=== PATIENT | female | born 1990 | race Two or more races ===

== ENCOUNTER 2018-05-14 11:33 | Observation (INO) | payer BC, OTHER ==
[2018-05-14 11:47] VITALS: BMI 31.0
[2018-05-14] MEDS ORDERED: GLUCAGON 1 MG KIT IVPUSH ONE (12:04)
[2018-05-14] MEDS ORDERED: SODIUM CHLORIDE 1,000 ML IV STA ×2 (12:04→15:00)
[2018-05-14] MEDS ORDERED: ONDANSETRON 4 MG/2 ML VIAL IVPUSH ONE (12:04)
--- NOTE | 2018-05-14 12:10 | PDOC ---
*Physical Exam - Vital Signs Last Vital Signs Temp Pulse Resp BP Pulse Ox 98.5 F 69 18 122/90 100 05/14/18 11:44 05/14/18 11:44 05/14/18 11:44 05/14/18 11:44 05/14/18 11:44 Medical Decision Making - Medical Decision Making 05/14/18 12:09 Vital Signs Temp Pulse Resp BP Pulse Ox 98.5 F 69 18 122/90 100 05/14/18 11:44 05/14/18 11:44 05/14/18 11:44 05/14/18 11:44 05/14/18 11:44 I agree with SANDRA Harrison's plan. Will trial medications i.e. zofran, glucagon for food impaction. If medication management fails, consult GI for endoscopy and admit. *DC/Admit/Observation/Transfer - Referrals Referrals: Nataliia Mar [Primary Care Provider] - - Patient Instructions - Post Discharge Activity
[2018-05-14] MEDS ORDERED: ONDANSETRON 4 MG/2 ML VIAL ONE (12:11)
[2018-05-14] MEDS ORDERED: GlUCAGON HUMAN RECOMBINANT 1 MG/VIAL ONE (12:11)
[2018-05-14] MEDS ORDERED: GLUCAGON 1 MG KIT ONE (12:16)
--- NOTE | 2018-05-14 12:26 | PDOC ---
History of Present Illness - General Chief Complaint: Nausea/Vomiting Stated Complaint: VOMITTING Time Seen by Provider: 05/14/18 11:52 History Source: Patient - History of Present Illness Timing/Duration: other Associated Symptoms: denies: chest pain Past History - Past Medical History Allergies/Adverse Reactions: Allergies Allergy/AdvReac Type Severity Reaction Status Date / Time No Known Allergies Allergy Verified 05/14/18 11:47 Home Medications: Ambulatory Orders Liraglutide [Saxenda] 3 mg SQ DAILY 04/16/16 COPD: No - Suicide/Smoking/Psychosocial Hx Smoking History: Never smoked Have you smoked in the past 12 months: No Substance Use Type: None Review of Systems - Review of Systems Constitutional: No: Chills, Fever Respiratory: No: Shortness of Breath, Stridor, Wheezing ABD/GI: No: Abdominal cramping *Physical Exam - Vital Signs Last Vital Signs Temp Pulse Resp BP Pulse Ox 98.5 F 69 18 122/90 100 05/14/18 11:44 05/14/18 11:44 05/14/18 11:44 05/14/18 11:44 05/14/18 11:44 - Physical Exam General Appearance: Yes: Appropriately Dressed. No: Apparent Distress HEENT: positive: Normal Voice Neck: positive: Supple. negative: Stridor Respiratory/Chest: positive: Lungs Clear, Normal Breath Sounds. negative: Respiratory Distress Cardiovascular: positive: Regular Rate, S1, S2 Gastrointestinal/Abdominal: positive: Soft. negative: Tender Integumentary: positive: Dry, Warm Neurologic: positive: Fully Oriented, Alert, Normal Mood/Affect ED Treatment Course - LABORATORY CBC & Chemistry Diagram: 05/14/18 12:39 05/14/18 12:27 - RADIOLOGY Radiology Studies Ordered: Category Date Time Status ABDOMEN-KUB FLAT PLATE [RAD] Stat Radiology 05/14/18 12:09 Ordered CHEST PA & LAT [RAD] Stat Radiology 05/14/18 12:06 Ordered NECK SOFT TISSUE [RAD] Stat Radiology 05/14/18 12:06 Ordered Medical Decision Making - Medical Decision Making 05/14/18 12:26 27-year-old female, no significant history, here with dysphagia. Patient states 2 days ago, she choked on a grape and had to have her father performed the Heimlich maneuver. States since then, she is unable to keep down any solids or liquids and ends up regurgitating. No difficulty breathing or stridor. Was seen in an urgent care yesterday and had an abdominal x-ray done which was read as normal per patient, here for evaluation as symptoms persist See exam Concern for esophageal obstruction 2/2 grape 3 days ago No resp sxs and stable in ED -XR -IVF/zofran/glucagon for esophageal dilation as d/w Dr Harris -pre-op labs -GI c/s for endoscopy 05/14/18 14:59 On reassessment, patient took a sip of water and reports discomfort but did not regurgitate. X-rays negative. Case discussed with Dr. Patiño of GI, who states he will see and school patient in a.m. 05/14/18 15:[address] Patiño of GI, who states he will scope patient in the a.m. Case discussed with admitting team and patient admitted to obs *DC/Admit/Observation/Transfer Diagnosis at time of Disposition: Food impaction of esophagus Qualifiers: Encounter type: initial encounter Qualified Code(s): T18.128A - Food in esophagus causing other injury, initial encounter - Discharge Dispostion Condition at time of disposition: Fair Decision to Admit order: Yes - Referrals Referrals: Nataliia Mar [Primary Care Provider] - - Patient Instructions - Post Discharge Activity
[2018-05-14 12:43] LABS: BASO % 0.8 % (0-2.0); EOS % 7.3 % (0-4.5); HEMATOCRIT 43.1 % (32.4-45.2); LYMPH % 24.7 % (8-40); MCH 27.9 pg (25.7-33.7); MCHC 32.5 g/dl (32.0-36.0); MEAN PLT VOLUME 8.7 fl (7.5-11.1); MONO % 5.1 % (3.8-10.2); NEUT % 62.1 % (42.8-82.8); PLATELET COUNT 218 K/MM3 (134-434); RBC 5.02 M/mm3 (3.60-5.2); RDW 14.1 % (11.6-15.6); WHITE BLOOD COUNT 9.2 K/mm3 (4.0-10.0)
[2018-05-14 12:45] LABS: URINE APPEARANCE CLEAR; URINE BILIRUBIN NEGATIVE (<2.0 mg/dL); URINE COLOR DKYELLOW; URINE GLUCOSE (UA) NEGATIVE (NEGATIVE); URINE KETONE TRACE (NEGATIVE); URINE LEUK ESTERASE NEGATIVE (NEGATIVE); URINE NITRITE NEGATIVE (NEGATIVE)
[2018-05-14 12:52] LABS: URINE PROTEIN 1+ (NEGATIVE)
[2018-05-14 12:56] LABS: EPI CELLS RARE /HPF (FEW); INR 1.03 (0.83-1.09); PROTHROMBIN TIME (PATIENT) 12.2 SEC (9.7-13.0); URINE BACTERIA RARE /hpf (NONE SEEN); URINE MUCUS RARE
[2018-05-14 13:06] LABS: ALBUMIN 3.8 g/dl (3.4-5.0); ALK PHOS 46 U/L (45-117); ANION GAP 9 MMOL/L (8-16); BILIRUBIN,TOTAL 0.5 mg/dL (0.2-1); BLOOD UREA NITROGEN 16 mg/dL (7-18); CALCIUM 8.8 mg/dL (8.5-10.1); CHLORIDE 106 mmol/L (98-107); CO2 24 mmol/L (21-32); CREATININE 1.3 mg/dL (0.55-1.3); GLUCOSE,RANDOM 76 mg/dL (74-106); SGOT/AST 17 U/L (15-37); SGPT/ALT 21 U/L (13-61); SODIUM 139 mmol/L (136-145); TOT PROT 7.8 g/dl (6.4-8.2)
--- NOTE | 2018-05-14 16:23 | HP ---
CHIEF COMPLAINT: Dysphagia PCP: HISTORY OF PRESENT ILLNESS: 27 year-old female with a PMH significant for migraines, presented to the ED with a complaint of difficulty swallowing. Two days ago patient choked on a grape and her father performed the Heimlich maneuver. She did not see any food come out, but since then has been unable to keep down liquids or solids. In the ER patient was able to keep down sips of water but reported discomfort with swallowing. Patient denies any type of respiratory distress. Recent Travel: No PAST MEDICAL HISTORY: Migraines PAST SURGICAL HISTORY: Right axillary sweat gland removal 2010 Social History: Smoking: occasional Alcohol: occasional Drugs: no Family History: Allergies No Known Allergies Allergy (Verified 05/14/18 11:47) HOME MEDICATIONS: Home Medications Medication Instructions Recorded Liraglutide [Saxenda] 3 mg SQ DAILY 04/16/16 REVIEW OF SYSTEMS CONSTITUTIONAL: Absent: fever, chills, diaphoresis, generalized weakness, malaise, loss of appetite, weight change HEENT: Absent: rhinorrhea, nasal congestion, throat pain, throat swelling, difficulty swallowing, mouth swelling, ear pain, eye pain, visual changes CARDIOVASCULAR: Absent: chest pain, syncope, palpitations, irregular heart rate, lightheadedness , peripheral edema RESPIRATORY: Absent: cough, shortness of breath, dyspnea with exertion, orthopnea, wheezing, stridor, hemoptysis GASTROINTESTINAL: +dysphagia Absent: abdominal pain, abdominal distension, nausea, vomiting, diarrhea, constipation, melena, hematochezia GENITOURINARY: Absent: dysuria, frequency, urgency, hesitancy, hematuria, flank pain, genital pain MUSCULOSKELETAL: Absent: myalgia, arthralgia, joint swelling, back pain, neck pain SKIN: Absent: rash, itching, pallor HEMATOLOGIC/IMMUNOLOGIC: Absent: easy bleeding, easy bruising, lymphadenopathy, frequent infections ENDOCRINE: Absent: unexplained weight gain, unexplained weight loss, heat intolerance, cold intolerance NEUROLOGIC: Absent: headache, focal weakness or paresthesias, dizziness, unsteady gait, seizure, mental status changes, bladder or bowel incontinence PSYCHIATRIC: Absent: anxiety, depression, suicidal or homicidal ideation, hallucinations. PHYSICAL EXAMINATION Vital Signs - 24 hr 05/14/18 11:44 Temperature 98.5 F Pulse Rate 69 Respiratory 18 Rate Blood Pressure 122/90 O2 Sat by Pulse 100 Oximetry (%) GENERAL: Awake, alert, and fully oriented, in no acute distress. HEAD: Normal with no signs of trauma. EYES: Pupils equal, round and reactive to light, extraocular movements intact, sclera anicteric, conjunctiva clear. No lid lag. EARS, NOSE, THROAT: Ears normal, nares patent, oropharynx clear without exudates. Moist mucous membranes. NECK: Normal range of motion, supple without lymphadenopathy, JVD, or masses. LUNGS: Breath sounds equal, clear to auscultation bilaterally. No wheezes, and no crackles. No accessory muscle use. HEART: Regular rate and rhythm, normal S1 and S2 without murmur, rub or gallop. ABDOMEN: Soft, nontender, not distended, normoactive bowel sounds, no guarding, no rebound, no masses. No hepatomegaly or splenomegaly. MUSCULOSKELETAL: Normal range of motion at all joints. No bony deformities or tenderness. No CVA tenderness. UPPER EXTREMITIES: 2+ pulses, warm, well-perfused. No cyanosis. No clubbing. No peripheral edema. LOWER EXTREMITIES: 2+ pulses, warm, well-perfused. No calf tenderness. No peripheral edema. NEUROLOGICAL: Cranial nerves II-XII intact. Normal speech. Laboratory Results - last 24 hr 05/14/18 05/14/18 05/14/18 12:27 12:39 12:39 WBC RBC Hgb Hct MCV MCH MCHC RDW Plt Count MPV Absolute Neuts (auto) Neutrophils % Lymphocytes % Monocytes % Eosinophils % Basophils % Nucleated RBC % PT with INR INR Sodium 139 Potassium 4.0 Chloride 106 Carbon Dioxide 24 Anion Gap 9 BUN 16 Creatinine 1.3 Creat Clearance w eGFR 49.91 Random Glucose 76 Calcium 8.8 Total Bilirubin 0.5 AST 17 ALT 21 Alkaline Phosphatase 46 Total Protein 7.8 Albumin 3.8 Serum , Qual Negative Urine Color Dkyellow Urine Appearance Clear Urine pH 6.0 Ur Specific [place] 1.029 Urine Protein 1+ H Urine Glucose (UA) Negative Urine Ketones Trace H Urine Blood Negative Urine Nitrite Negative Urine Bilirubin Negative Urine Urobilinogen 2.0 H Ur Leukocyte Esterase Negative Urine WBC (Auto) 9 Urine RBC (Auto) None Ur Epithelial Cells Rare Urine Bacteria Rare Urine Mucus Rare Blood Type Antibody Screen 05/14/18 05/14/18 05/14/18 12:39 12:39 12:39 WBC 9.2 RBC 5.02 Hgb 14.0 Hct 43.1 MCV 86.0 MCH 27.9 MCHC 32.5 RDW 14.1 Plt Count 218 MPV 8.7 Absolute Neuts (auto) 5.7 Neutrophils % 62.1 Lymphocytes % 24.7 Monocytes % 5.1 Eosinophils % 7.3 H Basophils % 0.8 Nucleated RBC % 0 PT with INR 12.20 INR 1.03 Sodium Potassium Chloride Carbon Dioxide Anion Gap BUN Creatinine Creat Clearance w eGFR Random Glucose Calcium Total Bilirubin AST ALT Alkaline Phosphatase Total Protein Albumin Serum , Qual Urine Color Urine Appearance Urine pH Ur Specific [place] Urine Protein Urine Glucose (UA) Urine Ketones Urine Blood Urine Nitrite Urine Bilirubin Urine Urobilinogen Ur Leukocyte Esterase Urine WBC (Auto) Urine RBC (Auto) Ur Epithelial Cells Urine Bacteria Urine Mucus Blood Type A POSITIVE Antibody Screen Negative ASSESSMENT/PLAN: 27 year-old female with no significant PMH admitted for food impaction. Food impaction of esohagus --seen and evaluated by GI, plan is to scope tomorrow --NPO --IV fluids Visit type - Emergency Visit Emergency Visit: Yes ED Registration Date: 05/14/18 Care time: The patient presented to the Emergency Department on the above date and was hospitalized for further evaluation of their emergent condition. - New Patient This patient is new to me today: Yes Date on this admission: 05/15/18 - Critical Care Critical Care patient: No Hospitalist Screening - Colonoscopy Questionnaire Colonoscopy Questionnaire: Colonoscopy Questionnaire - Patient: 50 - 75 years old and never had a screening colonoscopy: No History of colon or rectal polyps, or CA: No History of IBD, Crohn's disease or UC: No History of abdominal radiation therapy as a child: No - Relative: 1 with colon or rectal CA, or polyps at age 60 or younger: Unknown Colon or rectal CA diagnosed at age 45 or younger: Unknown Multiple relatives with colon or rectal CA: Unknown - Outcome: Screening Result: Negative Screen
[2018-05-14] MEDS ORDERED: SUCRALFATE 1 GM/10 ML UNIT DOSE CUPS PO SCH (16:45)
[2018-05-14] MEDS: D5-1/2NS+20 MEQ KCL - 20 MEQ/1,000 ML INFUS.BAG IV SCH (17:10)
[2018-05-15] MEDS: D5-1/2NS+20 MEQ KCL - 20 MEQ/1,000 ML INFUS.BAG IV SCH (02:35)
--- NOTE | 2018-05-15 09:05 | CON.GI ---
Consult Consult Specialty:: GI Referred by:: Hospitalist service Reason for Consultation:: dysphagia - History of Present Illness Chief Complaint: dysphagia History of Present Illness: 27F admitted for evaluation of food intolerance after eating a grape. she states that she was eating grapes tuesday eveing, pur one in her mouth that remained unchewed and she felt as though it lodged in her throat. She stated feeling as though she could not breathe and her parent performed the heimlich. While she was able to breathe afterwards she was concerned because she did not see it come out. She then began having episodes of vomiting up of mucous. she came to the ER, exaplains that she tried swallowing water and that a few minutes later she began to vomit up. She described pain when swallowing now. She has not vomited this morning. She denies a history of dysphagia. 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 There is nop family history of colorectal cancer or other GI malignancy. She was able to sip water this morning but states that there was pain when she swallowed. 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 No children Review of Systems - Review of Systems Constitutional: denies: Diaphoresis, Fever Cardiovascular: denies: Chest Pain Respiratory: reports: Cough. denies: SOB Gastrointestinal: reports: Abdominal Pain (mild epigastric TTP) Physical Exam-GI Vital Signs: Vital Signs Temperature 98.2 F 05/15/18 06:00 Pulse Rate 58 L 05/15/18 06:00 Respiratory Rate 20 05/15/18 06:00 Blood Pressure 99/50 L 05/15/18 06:00 O2 Sat by Pulse Oximetry (%) 100 05/14/18 22:04 Constitutional: Yes: Calm Eyes: No: Sclera Icterus Cardiovascular: Yes: Regular Rate and Rhythm. No: Murmur Respiratory: Yes: CTA Bilaterally Gastrointestinal Inspection: Yes: Other (+ RLQ tattoo). No: Distention ...Auscultate: Yes: Normoactive Bowel Sounds ...Palpate: Yes: Soft. No: Tenderness ...Percussion: No: Tympanitic Edema: No (No LE edema) Neurological: Yes: Alert, Oriented Labs: CBC, BMP 05/14/18 12:39 05/14/18 12:27 INR, PTT INR 1.03 (0.83-1.09) 05/14/18 12:39 Hepatic Panel Total Bilirubin 0.5 mg/dL (0.2-1) 05/14/18 12:27 AST 17 U/L (15-37) 05/14/18 12:27 ALT 21 U/L (13-61) 05/14/18 12:27 Alkaline Phosphatase 46 U/L (45-117) 05/14/18 12:27 Albumin 3.8 g/dl (3.4-5.0) 05/14/18 12:27 Imaging - Results X-ray: Other Problem List - Problems (1) Food impaction of esophagus Assessment/Plan: Able to swallow liquids this morning but still with pain. I question if what she is experiencing now is sensation from having a transient impaction from the grape. It would be odd for a grape to be lodged in the esophagus for so long as it would likely break down. We did discuss upper endosscopy for further evaluation and potential extraction of foreign body. We dioscussed potential risks of the procedure like but not limited to bleeding, perforation requiring surgery to repair, infection, sedation medication effects all of which could be potentially life threatening. I also explained the possible need for endotracheal intubation. She has agreed to the procedure. For now: NPO IV Hydration Code(s): T18.128A - FOOD IN ESOPHAGUS CAUSING OTHER INJURY, INITIAL ENCOUNTER Qualifiers: Encounter type: initial encounter Qualified Code(s): T18.128A - Food in esophagus causing other injury, initial encounter
--- NOTE | 2018-05-15 13:38 | PN ---
Progress Note (short form) - Note Progress Note: EGD report placed in physical chart and to be scanned into [employer] Problem List - Problems (1) Food impaction of esophagus Code(s): T18.128A - FOOD IN ESOPHAGUS CAUSING OTHER INJURY, INITIAL ENCOUNTER Qualifiers: Encounter type: initial encounter Qualified Code(s): T18.128A - Food in esophagus causing other injury, initial encounter
--- NOTE | 2018-05-15 16:25 | DS ---
Physical Exam: SUBJECTIVE: Patient seen and examined OBJECTIVE: Vital Signs Period Temp Pulse Resp BP Sys/Del Cid Pulse Ox Last 24 Hr 97.6 F-98.4 F 58-76 14-20 99-120/50-86 100-100 PHYSICAL EXAM GENERAL: The patient is awake, alert, and fully oriented, in no acute distress. HEAD: Normal with no signs of trauma. EYES: PERRL, extraocular movements intact, sclera anicteric, conjunctiva clear. ENT: Ears normal, nares patent, oropharynx clear without exudates, moist mucous membranes. NECK: Trachea midline, full range of motion, supple. LUNGS: Breath sounds equal, clear to auscultation bilaterally, no wheezes, no crackles, no accessory muscle use. HEART: Regular rate and rhythm, S1, S2 without murmur, rub or gallop. ABDOMEN: Soft, nontender, nondistended, normoactive bowel sounds, no guarding, no rebound, no hepatosplenomegaly, no masses. EXTREMITIES: 2+ pulses, warm, well-perfused, no edema. NEUROLOGICAL: Cranial nerves II through XII grossly intact. Normal speech, gait not observed. PSYCH: Normal mood, normal affect. SKIN: Warm, dry, normal turgor, no rashes or lesions noted. LABS Laboratory Results - last 24 hr 05/14/18 17:05 Blood Type A POSITIVE HOSPITAL COURSE: Date of Admission:05/14/18 Date of Discharge: 05/15/18 Discharge Summary Reason For Visit: FOOD IMPACTION OF ESOPHAGUS Current Active Problems Food impaction of esophagus (Acute) Condition: Improved - Instructions Diet, Activity, Other Instructions: Advance your diet slowly. Eat only those foods that you can swallow easily. Drink plenty of fluids. Please call Dr. Fransisco Keane's office to schedule your outpatient followup. Return to the emergency department for any new or worsening symtpoms. Referrals: Nataliia Mar [Primary Care Provider] - Peter Keane DO [Staff Physician] - Disposition: HOME - Home Medications Comprehensive Discharge Medication List: Ambulatory Orders Norgestimate-Ethinyl Estradiol [Uge-Bs-Gvmupq Tablet] 1 tab PO DAILY 05/14/18 Topiramate [Topamax] 100 mg PO DAILY 05/14/18
[2018-05-15 17:12] VITALS: BP 114/65; PULSE 68; TEMP 98.5
--- NOTE | 2018-05-16 18:51 | PATH ---
Surgical Pathology Report Patient Name: HELEN JOLLY Med. Rec. #: [id number] /Age/Gender: 1990 (Age: 27) / F Account: [id number] Location: [facility] MED/SURG Taken: 05/15/2018 Received: 05/15/2018 Reported: 05/16/2018 Physicians: Juan Thrasher ACNP Specimen(s) Received A: BX BODY B: BX GE JUNCTION Clinical History Foreign body removal, food impaction of esophagus Final Diagnosis A. BODY, BIOPSY: GASTRIC MUCOSA WITH NO DIAGNOSTIC ABNORMALITIES. IMMUNOSTAIN IS NEGATIVE FOR H. PYLORI ORGANISMS. NEGATIVE FOR INTESTINAL METAPLASIA. B. GE JUNCTION, BIOPSY: GASTROESOPHAGEAL JUNCTIONAL MUCOSA SHOWING BASAL CELL HYPERPLASIA, ELONGATION OF LAMINA PROPRIA PAPILLAE, AND FOCAL EOSINOPHILIC INFILTRATE (FOCAL EOSINOPHILIC COUNT > 20/HPF). Comment: Negative for intestinal metaplasia. Although findings are compatible with reflux esophagitis, eosinophilic esophagitis cannot be completely ruled out. Clinical correlation is recommended. Electronically Signed Miguel Angel Urias M.D. Gross Description A. Received in formalin, labeled "body of stomach" are 2 lin, irregular portions of soft tissue measuring 0.4 cm. in greatest dimension. The specimens are submitted in toto in one cassette. B. Received in formalin, labeled "GE junction" is a lin, irregular portion of soft tissue measuring 0.3 cm. in greatest dimension. The specimen is submitted in toto in one cassette. __ KWShani/05/15/2018 lety/05/15/2018
== END 2018-05-15 17:50 | disposition home or self-care (01) ==
LOC: JER 11:33 → JERBED 15:21 → J8W 22:52
PROVIDERS: ADMIT Internal Medicine; ATTEND Nurse Practitioner Acute Care
PROC: 0DB48ZX Excision of Esophagogastric Junction, Via Natural or Artificial Opening Endoscopic, Diagnostic (ICD-10-PCS; principal; 2018-05-14)
PROC: 0DB68ZX Excision of Stomach, Via Natural or Artificial Opening Endoscopic, Diagnostic (ICD-10-PCS; 2018-05-14)
PROC: 3E033GC Introduction of Other Therapeutic Substance into Peripheral Vein, Percutaneous Approach (ICD-10-PCS; 2018-05-14)
PROC: 3E0337Z Introduction of Electrolytic and Water Balance Substance into Peripheral Vein, Percutaneous Approach (ICD-10-PCS; 2018-05-14)
DX: T18.128A Food in esophagus causing other injury, initial encounter (principal); K22.8 Other specified diseases of esophagus; X58.XXXA Exposure to other specified factors, initial encounter; Y93.9 Activity, unspecified; Y92.9 Unspecified place or not applicable
CPT/HCPCS: 36415; 70360-TC-FY; 71046-TC-FY; 74018-TC-FY; 80053; 81003; 81015; 84703; 85025; 85610; 86850; 86900; 86901; 88305-TC; 88342-TC; 99284-25; G0378; J7030